=== PATIENT | female | born 1970 | race Caucasian/White ===

== ENCOUNTER 2021-01-26 18:40 | Emergency (ER) | payer MEDICARE ==
[~2021-01-26] VITALS: Ht 170.2 cm; Wt 104.3 kg
[2021-01-26] MEDS ORDERED: HYDROCODON-ACE1 EAC7 PO (18:49)
[2021-01-26] MEDS ORDERED: DESYREL150 MG PO (18:49)
[2021-01-26] MEDS ORDERED: ADDERALL 30 MG30 MG PO (18:49)
[2021-01-26] MEDS ORDERED: ZANAFLEX4 MG PO (20:41)
[2021-01-26 20:53] VITALS: BP 150/67
== END 2021-01-26 21:10 | disposition home or self-care (01) ==
LOC: M.ERS 18:40
DX: M54.50 Low back pain, unspecified (principal); G89.29 Other chronic pain; N18.9 Chronic kidney disease, unspecified; Z79.899 Other long term (current) drug therapy